=== PATIENT | female | born 1930 | race Caucasian/White ===

== ENCOUNTER 2016-09-30 05:53 | Emergency (ER) | payer MEDICARE, OTHER ==
[~2016-09-30] VITALS: Ht 167.6 cm; Wt 77.3 kg
[~2016-09-30 05:53] MED LIST: ASPI-628 PO; Areds2 PO; CHLORTRIMETON PO; CRAN200C2 PO; CRES20T PO; DRON400T PO; FUR20 PO; HYDR-4003 PO; LOSA50TA37 PO; METO25TA6 PO; NITR50CA PO; POTA-62 PO; SPIR25TA3 PO; VIT B PO; Vit C PO; WARF2.5T82 PO; [UNRECOGNIZED DRUG - OTHER] PO
--- NOTE | 2016-09-30 06:04 | ED.REPORT ---
HPI-Extremity Problem Upper Date of Service Sep 30, 2016 ED Provider: Key Castillo Patient is an 86 year old female with a hx of paroxysmal afib, CAD, HTN, hyperlipidemia, breast cancer, pre-diabetes, and PE on Coumadin who presents to the ED via EMS complaining of R shoulder pain due to a torn rotator cuff. Her pain was exacerbated 2 days ago after reaching too far but was worse last night. The pain radiates down her arm into her hand. She has had imaging previously but is not a good candidate for surgery due to her medical history. Associated symptoms include decreased ROM, diaphoresis, weakness, shaking, and SOB all which the patient attributes to pain. Patient has also had slightly more ankle swelling than normal. She denies numbness, tingling, focal weakness, chest pain, dizziness, fever, chills, or any other symptoms. She no longer takes metoprolol. Patient's orthopedist is Dr. Gagnon. Nursing Notes Stated Complaint: R SHOULDER PAIN Nursing Notes Reviewed: Yes Allergies: Coded Allergies: meperidine (Verified Allergy, Severe, 04/05/14) Shellfish (Verified Allergy, Intermediate, Dizziness, 04/05/14) SHELLFISH Uncoded Allergies: SULFA (Allergy, Severe, 12/27/08) Clam (Allergy, Unknown, SHELLFISH, 10/23/04) DEMEROL (CONVULION) SULFA (THROAT SWELLING) (Allergy, Unknown, 10/22/04) SHELL FISH (Allergy, Unknown, 10/22/04) Scheduled ([Chlortrimeton]) 4 MG PO BID ([Magdelay]) 3 CAP PO PM ([Areds2]) 1 CAPSULE PO BID ([Vit C]) 500 MG PO AM ([Vit B - 12]) 1 TAB PO BID Aspirin (Aspir 81) 81 Mg Tablet.dr 81 MG PO PM Cranberry Extract (Cranberry) 200 Mg Capsule 0 PO PM Dronedarone HCl (Multaq) 400 Mg Tablet 400 MG PO BID Losartan Potassium (Losartan Potassium) 50 Mg Tablet 50 MG PO DAILY Metoprolol Tartrate (Metoprolol Tartrate) 25 Mg Tablet 25 MG PO AM Naproxen Sodium (Naproxen Sodium Cr) 375 Mg Tbmp.24hr 375 MG PO BID morning and night for 5 days then as needed Nitrofurantoin Macrocrystal (Nitrofurantoin Macrocrystal) 50 Mg Capsule 50 MG PO PM Potassium Chloride ER (Potassium Chloride ER) 20 Meq Tablet.er 20 MEQ PO DAILY TAKE WITH FOOD Rosuvastatin Calcium (Crestor) 20 Mg Tablet 20 MG PO DAILY Spironolactone (Spironolactone) 25 Mg Tablet 25 MG PO DAILY Warfarin Sodium (Warfarin Sodium) 2.5 Mg Tablet 2.5 MG PO PM Scheduled PRN Hydrocodone-Acetaminophen 5-325 mg (Hydrocodone-Acetaminophen 5-325 mg) 1 Each Tablet 1 EACH PO Q4 PRN PRN For Pain Miscellaneous Medications Furosemide (Furosemide) 20 Mg Tab 20 MG PO General Time Seen by MD: 06:04 Chief Complaint Shoulder injury right Hx Obtained From: Patient Arrived By: Ambulance Onset Occurred: 2 days ago Symptom Duration: Since onset Recent Healthcare: Recent doctor visit Similar Sx Previous: Yes Past Medical History Past Medical History Paroxysmal A-Fib Hyperlipidemia Mild glucose intolerance Breast Cancer, status post bilat mastectomies Hiatal hernia with reflux disease Osteoarthritis Osteopenia/osteoporosis Recurrents UTIs Previous PE's Pre-diabetic Reports: Coronary artery disease, Hypertension Past Surgical History Mastectomies in 1980 and 1989 Rotator Cuff surgery Benign ovarian cyst removal Reports: Appendectomy, Cataract surgery, Cholecystectomy, Tonsillectomy Smoking History Never Smoker Social History Other Social History: Good social support Ambulatory Status Walker Review of Systems Review of Systems Note: +decreased ROM -tingling Constitutional: Reports: Weakness - generalized, Denies: Chills, Fever Musculoskeletal: Reports: Extremity pain, Joint pain, Joint swelling Skin: Reports Diaphoresis Neurologic: Reports: Shaking, Denies: Dizziness, Focal weakness, Numbness Complete sys rev & neg: except as marked. Respiratory: Reports: Shortness of breath Cardiovascular: Denies: Chest pain Physical Exam Initial Vital Signs Vital Signs (First) Date Time Temp Pulse Resp B/P Pulse Ox O2 Delivery O2 Flow Rate FiO2 09/30/16 06:12 36.8 66 16 150/48 100 Room Air Initial VS: Reviewed, Vital signs abnormal Head / Eyes: Atraumatic, Normocephalic Skin: Warm, Dry Neurologic: Alert, Oriented, Nonfocal Psychiatric: Mood/affect normal, Behavior normal, Normal thought content General/Constitutional: Awake, Alert, No acute distress Neck: Atraumatic, Supple, Full range of motion, No JVD Respiratory / Chest: Atraumatic, Breath sounds NL, Breath sounds = bilat, No respiratory distress No crackles Cardiovascular: Heart rate NL, Heart sounds NL Heart Rate / Rhythm: Positive: Irregular rhythm Lower Ext Edema: Positive: Bilateral 3+ (minor chronic venous stasis changes, good cap refill ) Upper Extremity / MS: No deformity, Neurologic intact, Vascular intact R upper extremity pain reproducible but is not the pain that kept her up last night. tend to palpation along rotator cuff inertion no abrasions or bruising Abdomen: Atraumatic, Soft, Non-tender No superpubic tenderness Interpretation & Diagnostics Lab Results Interpretation Result Diagram: 09/30/16 0600 09/30/16 0600 Test 09/30/16 06:00 09/30/16 09:05 White Blood Count 8.0th/mm3 (3.8-10.1) Red Blood Count 3.92mil/mm3 (3.90-5.20) Hemoglobin 12.6g/dL (12.0-15.6) Hematocrit 37.9% (35.0-46.0) Mean Corpuscular Volume 96.7fL (81-100) Mean Corpuscular Hemoglobin 32.1pg (27.0-35.0) Mean Corpuscular Hemoglobin Concent 33.2% (32.0-37.0) Red Cell Distribution Width 12.9% (12.3-15.4) Platelet Count 226bil/L (150-400) Neutrophils (%) (Auto) 68.9% (40-74) Lymphocytes (%) (Auto) 20.8% (14-46) Monocytes (%) (Auto) 9.2% (4-12) Eosinophils (%) (Auto) 0.5% (0-5) Basophils (%) (Auto) 0.4% (0-3) Hold Purple Top Tube Received (Received) Prothrombin Time 31.3sec (8.1-12.5) Prothromb Time International Ratio 2.86ratio Hold Blue Top Tube Received (Received) Sodium Level 137mEq/L (134-144) Potassium Level 4.0mEq/L (3.5-5.2) Chloride Level 103mEq/L (97-108) Carbon Dioxide Level 18mmol/L (18-29) Blood Urea Nitrogen 20mg/dL (8-27) Creatinine 0.93mg/dL (0.57-1.00) Estimat Glomerular Filtration Rate 82mL/min (>59) Glucose Level 168mg/dL (60-99) Calcium Level 10.0mg/dL (8.5-10.1) Magnesium Level 1.8mg/dL (1.6-2.6) Total Bilirubin 0.4mg/dL (0.0-1.2) Aspartate Amino Transf (AST/SGOT) 14U/L (0-50) Alanine Aminotransferase (ALT/SGPT) 15U/L (0-32) Alkaline Phosphatase 105U/L (25-165) Troponin T 0.010ug/L (0.0-0.011) Total Protein 7.9g/dL (6.4-8.4) Albumin 4.1g/dL (3.4-5.0) Hold Red Top Tube Received (Received) Hold [place] Top Tube Received (Received) Hold Urine Received (Received) Lab Results Interpretation: ECHO in 04/28/15 indicates ejection fraction of 65-70% ECG Interpretation ECG Interpretation: Sinus rate 65 No actute ischemia Time: 06:15 Interpreted by: ED physician X-Ray Chest Interpretation Chest Xray Interpretation: No significant cephalization, infiltrates, or cardiomegaly Unremarkable View: Portable, 1 view Interpretation / Wet Read by: Interpret - ED physician Re-Eval/Medical Decision Re-Evaluation/Progress : Time of Eval: 09:27 Re-Evaluation/Progress Note: Rechecked patient. Her shoulder pain was not resolved with nitro or a single Vicodin. Her labs are unremarkable, INR is 2.8. IV Toradol diminished her pain. Discussed lab results and pain management, including a sling. Pt has a sling at home. Discussed plan for discharge. Patient understands and agrees with plan. All questions addressed at this time. Counseled Regarding: Diagnosis, Lab results, Need for follow-up, When/why to return to ED Discharge & Departure Impression: Primary Impression: Shoulder pain Laterality: right Chronicity: unspecified Qualified Code: M25.511 - Pain in right shoulder Disposition: Home Discharge Condition All VS Reviewed: Yes Condition: Improved Patient Instructions: Rotator Cuff Injury (ED) Additional Instructions: Thank you for coming to the emergency department today. Your labs are reassuring. I do not think there is a dangerous cause for your pain at this time. There is no evidence of a heart attack or infection. Take Naproxen 375mg am and pm for 5 days then as needed after that. You can also use Tylenol/acetaminophen as needed for pain. You may use these medications in unison. Use a sling for immobilization and pain management. Make sure you are doing range of motion exercises intermittently to avoid forming a frozen shoulder. Follow up with your primary doctor or your orthopedist for further care. I hope you feel better soon! Referrals: OTHER,PHYSICIAN Scribe Attestation Portions of this note were transcribed by Jed Segura. I, Dr. Castillo personally performed the history, physical exam and medical decision-making; I reviewed and confirmed the accuracy of the information in the transcribed note. Signed by: Harry Root, 09/30/16 Key Castillo MD Sep 30, 2016 06:04 JED SEGURA Sep 30, 2016 06:43
[2016-09-30 06:12] VITALS: BP 150/48; PULSE 66; RESP 16; O2SAT 100
[2016-09-30 07:02] LABS: BASOPHILS % (AUTO) 0.4 % (0-3); EOSINOPHILS % (AUTO) 0.5 % (0-5); MONOCYTES % (AUTO) 9.2 % (4-12); Mean Corpuscular Hemoglobin 32.1 pg (27.0-35.0); Mean Corpuscular Volume 96.7 fL (81-100); NEUTROPHILS % (AUTO) 68.9 % (40-74); Platelet Count 226 bil/L (150-400)
[2016-09-30 07:04] LABS: TROPONIN T 0.01 ug/L (0.0-0.011)
[2016-09-30] MEDS ORDERED: HYDROcodone-APAP 5-325 mg Tablet PO ONE (07:05)
[2016-09-30 07:15] LABS: Magnesium 1.8 mg/dL (1.6-2.6)
[2016-09-30 07:17] VITALS: BP 150/55; PULSE 69; RESP 15; O2SAT 97
[2016-09-30 07:23] VITALS: BP 141/43; PULSE 73; RESP 19; O2SAT 96
[2016-09-30 07:32] LABS: INR 2.86 ratio
[2016-09-30] MEDS ORDERED: Ketorolac 15 mg/mL Inj IVPUSH ONE (08:20)
[2016-09-30 08:30] VITALS: BP 154/45; PULSE 64; RESP 8; O2SAT 97
--- NOTE | 2016-09-30 09:23 | DRSVH ---
PROCEDURE: X-RAY CHEST ONE VIEW, PORTABLE ([id number]) INDICATIONS: chest pain TECHNIQUE: One view of the chest was acquired. COMPARISON: [facility], , CHEST 1VW (PORTABLE), 02/01/2008, 6:12. FINDINGS: Surgical changes and devices: None. Lungs and pleura: No pleural effusions or pneumothorax. Lungs are clear. Mediastinum: Mediastinal contours appear normal. Heart size is normal. Bones and chest wall: No suspicious bony lesions. Overlying soft tissues appear unremarkable. IMPRESSION: No acute cardiopulmonary disease. Dictated by: Vasquez HERNANDEZ Interpreted: Alesia Elam MD on 09/30/2016 at 8:56 Approved by: Alesia Elam M.D. on 09/30/2016 at 9:20
[2016-09-30] MEDS ORDERED: [UNRECOGNIZED DRUG - CODE] PO (09:37)
[2016-09-30 09:45] VITALS: BP 144/45; PULSE 65; RESP 12; O2SAT 97
[2016-09-30 10:08] VITALS: BP 144/45; PULSE 65; RESP 12; O2SAT 97
== END 2016-09-30 10:10 | disposition home or self-care (01) ==
LOC: EDBD 05:53 → SED 05:53
DX: M25.511 Pain in right shoulder (principal); I48.0 Paroxysmal atrial fibrillation; E78.5 Hyperlipidemia, unspecified; I10 Essential (primary) hypertension; I25.10 Atherosclerotic heart disease of native coronary artery without angina pectoris; Z85.3 Personal history of malignant neoplasm of breast; Z79.82 Long term (current) use of aspirin; Z79.899 Other long term (current) drug therapy; Z88.2 Allergy status to sulfonamides; Z88.5 Allergy status to narcotic agent; Z91.013 Allergy to seafood
CPT/HCPCS: 36415; 71010; 80053; 83735; 84484; 85025; 85610; 93005; 96374; 99285; J1885